=== PATIENT | female | born 1975 | race Hispanic/Latino ===

== ENCOUNTER 2023-03-07 13:33 | Emergency (ER) | payer BC, SELFPAY ==
--- OUTSIDE RECORDS SUMMARY | 2023-03-07 13:36 | XMS REPORT | Continuity of Care Document ---
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 Medications Ordered Filled Start Stop Current Ordering Indication Dosage Frequency Signature Comments Components Source Medication Medication Date Date Medication? Clinician (SIG) Name Name Duexis Duexis 2018- 2019- No Domingo 1 tablet Co mmon 04-12 08-29 [facility] 00:00: 00:00 - [facility] 00 :00 [facility] Trintellix Trintellix 2018- Yes Domingo 1 tablet Common 4-24 [facility] 00:00: - [facility] 00 [facility] Womens One Womens One Yes Domingo as C ommon Daily Daily Zheng directed Spirit - [facility] Immunizations Ordered Immunization Filled Immunization Date Status Commen ts Source Name Name TDAP > 7 TDAP > 7 2018-12-21 Completed Common Spirit Years-Adacel Years-Adacel 00:00:00 - [facility] Procedures This patient has no known procedures. Encounters Start End Encounter Admission Attending Care Care Encounter Source Date/Time Date/Time Type Type Clinicians Facility Department ID 2020-03-27 2020-03-27 [id number] Common 09:46:00 09:46:[address] [facility] 2019-04-12 2019-04-12 [facility] [id number] Common 16:30:00 16:30:[address] [place] [facility] 2019-03-28 2019-03-28 [facility] [id number] Common 13:12:00 13:12:[address] [facility] 2019-01-05 2019-01-05 [facility] [id number] Common 15:23:00 15:23:[address] [facility] 2018-12-30 2018-12-30 [facility] [id number] Common 10:34:00 10:34:[address] [facility] 2018-12-21 2018-12-21 [facility] [id number] Common 13:30:00 13:30:[address] [facility] Results This patient has no known results.
--- NOTE | 2023-03-07 14:47 | RAD REPORT ---
EXAM DESCRIPTION: CT - Head C Spine Mpr Wo Con - 03/07/2023 2:25 pm CLINICAL HISTORY: Head and neck injury status post fall. Head and neck pain COMPARISON: None. TECHNIQUE: Computed axial tomography of the head and cervical spine was obtained. Sagittal and coronal reconstruction was performed. All CT scans are performed using dose optimization technique as appropriate and may include automated exposure control or mA/KV adjustment according to patient size. FINDINGS: An intracranial bleed is not seen. The ventricles are normal in caliber. No significant hypodensity within the brain. An extra-axial fluid collection is not noted. Fluid within the visualized sinuses and mastoids is not seen A cervical fracture is not visualized. No dislocation is noted. IMPRESSION: No acute intracranial abnormality is seen. A cervical fracture is not visualized. If the patient continues to have symptoms to suggest intracranial /spinal cord pathology then MRI wou ld be recommended
--- NOTE | 2023-03-07 16:08 | ER ---
Nurse's Notes [facility] Name: Corie Valdes Age: 47 yrs Sex: Female : 1975 Arrival Date: 03/07/2023 Time: 13:33 Bed 11 Private MD: Diagnosis: Fall on same level, unspecified;Unspecified injury of head, initial encounter;Strain of muscle, fascia and tendon at neck level, initial encounter Presentation: 03/07 14:10 Chief complaint: Patient states: she caught the spirit in [employer] and she fell back, no iw one was there to catch her so she hit her head on chair , now has pain to neck and back of head. Coronavirus screen: At this time, the client does not indicate any symptoms associated with coronavirus-19. Ebola Screen: Patient negative for fever greater than or equal to 101.5 degrees Fahrenheit, and additional compatible Ebola Virus Disease symptoms Patient denies exposure to infectious person. Patient denies travel to an Ebola-affected area in the 21 days before illness onset. No symptoms or risks identified at this time. Initial Sepsis Screen: Does the patient meet any 2 criteria? No. Patient's initial sepsis screen is negative. Does the patient have a suspected source of infection? No. Patient's initial sepsis screen is negative. Risk Assessment: Do you want to hurt yourself or someone else? Patient reports no desire to harm self or others. Onset of symptoms was March 07, 2023. 14:10 Method Of Arrival: Ambulatory iw 14:10 Acuity: FERN 3 iw Triage Assessment: 16:52 Headache History: Denies prior headaches. General: Appears in no apparent distress. os comfortable, Behavior is calm, cooperative, appropriate for age. Pain: Denies pain. Complains of pain in scalp Pain currently is 4 out of 10 on a pain scale. Pain began 1 hour ago. Also complains of no other associated symptoms. Neuro: No deficits noted. Cardiovascular: No deficits noted. Respiratory: No deficits noted. Historical: - Allergies: 14:12 No Known Allergies; iw - PMHx: 14:12 None; iw Screenin:52 [facility] ED Fall Risk Assessment (Adult) History of falling in the last 3 months, os including since admission No falls in past 3 months (0 pts) Confusion or Disorientation No (0 pts) Intoxicated or Sedated No (0 pts) Impaired Gait No (0 pts) Mobility Assist Device Used No (0 pt) Altered Elimination No (0 pt) Score/Fall Risk Level 0 - 2 = Low Risk. Abuse screen: Denies threats or abuse. Nutritional screening: No deficits noted. Tuberculosis screening: No symptoms or risk factors identified. Vital Signs: 14:50 BP 131 / 71; Pulse 69; Resp 18; Temp 97.1; Pulse Ox 99% on R/A; mm9 [place] Coma Score: 16:04 Eye Response: spontaneous(4). Motor Response: obeys commands(6). Verbal Response: yuriy oriented(5). Total: 15. NIH Stroke Scale Scores: 16:01 NIHSS Score: 0 yuriy ED Course: 13:34 Patient arrived in ED. am2 14:12 Triage completed. iw 14:27 CT Head C Spine In Process Unspecified. EDMS 14:42 Dakotah Robledo MD is Attending Physician. yuriy 16:36 Kate Gutiérrez, RN is Primary Nurse. os 16:53 Arm band placed on right wrist. os 16:53 No provider procedures requiring assistance completed. Patient did not have IV access os during this emergency room visit. 17:25 Tika Diamond, RN is Primary Nurse. iw Administered Medications: 16:47 Drug: Acetaminophen PO 1000 mg Route: PO; os 17:00 Follow up: Response: No adverse reaction iw Outcome: 16:07 Discharge ordered by . yuriy 16:53 Condition: good os 17:25 Patient left the ED. iw NIH Stroke Scale - NIH Stroke Score Date: 03/07/2023 Time: 16:01 Total Score = 0 10. Dysarthria (speech clarity - read or repeat words) - 0(Normal) 11. Extinction and Inattention (visual/tactile/auditory/spatial/personal) - 0(No abnormality) 1a. Level of Consciousness (LOC) - 0(Alert) 1b. Level of Consciousness (LOC) (Month \T\ Age) - 0(Both) 1c. LOC Commands (Open \T\ Closes Eyes/Security Developer) - 0(Both) 2. Best Gaze (Lateral Gaze Paresis) - 0(Normal) 3. Visual Field Loss - 0(No visual loss) 4. Facial Palsy - 0(Normal) 5a. Left Arm: Motor (10-second hold) - 0(No drift) 5b. Right Arm: Motor (10-second hold) - 0(No drift) 6a. Left Leg: Motor (5-second hold - always test supine) - 0(No drift) 6b. Right Leg: Motor (5-second hold - always test supine) - 0(No drift) 7. Limb Ataxia (finger/nose \T\ heel/corral - test with eyes open) - 0(Absent) 8. Sensory Loss (pinprick arms/legs/face) - 0(Normal) 9. Best Language: Aphasia (description/naming/reading) - 0(No aphasia) Initials: yuriy Signatures: Dispatcher [employer] Dakotah De La Garza MD MD cha Williams, Irene, Janice Nunez RN am2 Sierra Wallis mm9 Kate Gutiérrez RN RN os
--- NOTE | 2023-03-07 16:08 | EDPHYS ---
Physician Documentation [facility] Name: Corie Valdes Age: 47 yrs Sex: Female : 1975 Arrival Date: 03/07/2023 Time: 13:33 Bed 11 Private MD: ED Physician Dakotah Robledo HPI: 03/07 16:01 This 47 yrs old Female presents to ER via Ambulatory with complaints of yuriy Headache, Head Injury-Adult, Fall Injury. 16:01 The patient complains of pain to the left occipital area, left base of the skull, right yuriy occipital area and right base of the skull. The patient describes the headache as constant. Onset: The symptoms/episode began/occurred just prior to arrival. Associated signs and symptoms: The patient has no apparent associated signs or symptoms. Associated signs and symptoms: Pertinent positives: This patient does not have any pertinent positive signs or symptoms associated with a headache. Severity of symptoms: At its worst the pain was mild, moderate, in the emergency department the pain is unchanged. Headache History: Denies prior headaches. The symptoms are alleviated by nothing. the symptoms are aggravated by movement. The patient has not experienced similar symptoms in the past. Historical: - Allergies: 14:12 No Known Allergies; iw - PMHx: 14:12 None; iw ROS: 16:01 Constitutional: Negative for fever, chills, and weight loss, Eyes: Negative for injury, yuriy pain, redness, and discharge, ENT: Negative for injury, pain, and discharge, Cardiovascular: Negative for chest pain, palpitations, and edema, Respiratory: Negative for shortness of breath, cough, wheezing, and pleuritic chest pain, Abdomen/GI: Negative for abdominal pain, nausea, vomiting, diarrhea, and constipation, Back: Negative for injury and pain, : Negative for injury, bleeding, discharge, and swelling, MS/Extremity: Negative for injury and deformity, Skin: Negative for injury, rash, and discoloration, Psych: Negative for depression, anxiety, suicide ideation, homicidal ideation, and hallucinations, Allergy/Immunology: Negative for hives, rash, and allergies, Endocrine: Negative for neck swelling, polydipsia, polyuria, polyphagia, and marked weight changes, Hematologic/Lymphatic: Negative for swollen nodes, abnormal bleeding, and unusual bruising. 16:01 Neck: Positive for pain at rest. 16:01 Neuro: Positive for headache, of the scalp. Exam: 16:01 Constitutional: This is a well developed, well nourished patient who is awake, alert, yuriy and in no acute distress. Head/Face: Normocephalic, atraumatic. Eyes: Pupils equal round and reactive to light, extra-ocular motions intact. Lids and lashes normal. Conjunctiva and sclera are non-icteric and not injected. Cornea within normal limits. Periorbital areas with no swelling, redness, or edema. ENT: Nares patent. No nasal discharge, no septal abnormalities noted. Tympanic membranes are normal and external auditory canals are clear. Oropharynx with no redness, swelling, or masses, exudates, or evidence of obstruction, uvula midline. Mucous membranes moist. Neck: Trachea midline, no thyromegaly or masses palpated, and no cervical lymphadenopathy. Supple, full range of motion without nuchal rigidity, or vertebral point tenderness. No Meningismus. Chest/axilla: Normal chest wall appearance and motion. Nontender with no deformity. No lesions are appreciated. Cardiovascular: Regular rate and rhythm with a normal S1 and S2. No gallops, murmurs, or rubs. Normal PMI, no JVD. No pulse deficits. Respiratory: Lungs have equal breath sounds bilaterally, clear to auscultation and percussion. No rales, rhonchi or wheezes noted. No increased work of breathing, no retractions or nasal flaring. Abdomen/GI: Soft, non-tender, with normal bowel sounds. No distension or tympany. No guarding or rebound. No evidence of tenderness throughout. Back: No spinal tenderness. No costovertebral tenderness. Full range of motion. Skin: Warm, dry with normal turgor. Normal color with no rashes, no lesions, and no evidence of cellulitis. MS/ Extremity: Pulses equal, no cyanosis. Neurovascular intact. Full, normal range of motion. Psych: Awake, alert, with orientation to person, place and time. Behavior, mood, and affect are within normal limits. 16:01 Neuro: Orientation: is normal, appropriate for stated age, no acute changes, Mentation: is normal, appropriate for stated age, no acute changes, Memory: is normal, appropriate for stated age, no acute changes, Cranial nerves: grossly normal, is grossly normal based on the patient's age, no acute changes, Cerebellar function: is grossly normal, Motor: moves all fours, strength is normal, Sensation: no obvious gross deficits, appropriate no acute changes, Gait: is steady, appropriate for age, Deep tendon reflexes are 2+ (normal) in the bilateral brachioradialis, bicep, tricep and patellar and Achilles tendons, Babinski testing is normal, seizure activity, is not displayed by the patient. Vital Signs: 14:50 BP 131 / 71; Pulse 69; Resp 18; Temp 97.1; Pulse Ox 99% on R/A; mm9 NIH Stroke Scale Scores: 16:01 NIHSS Score: 0 yuriy [place] Coma Score: 16:04 Eye Response: spontaneous(4). Motor Response: obeys commands(6). Verbal Response: yuriy oriented(5). Total: 15. MDM: 14:42 Patient medically screened. yuriy 16:04 Data reviewed: vital signs, nurses notes, radiologic studies, CT scan. Consideration of yuriy Admission/Observation Escalation of care including admission/observation considered. I considered the following discharge prescriptions or medication management in the emergency department Medications were administered in the Emergency Department. See MAR. Test considered but Not performed: Labs: no labs. Care significantly affected by the following chronic conditions: none. 16:05 Differential diagnosis: C-Spine Fracture Cervical Disc Herniation Cervical Raiculopathy yuriy migraine, subarachnoid bleed, subdural hematoma, tension headache, traumatic injuries, cervical strain, Degenerative Disc Disease Flexion Teardrop Fracture fracture, Neck Contusion Simple Wedge Fracture Vertical Compression Injury. Independent interpretation of the following test(s) in the Emergency Department CT Scan: My interpretation is ct head, c spine. Historians other than the Patient: Family Member: spose. 03/07 14:10 Order name: CT Head C Spine; Complete Time: 15:58 iw 03/07 14:42 Order name: Ice pack; Complete Time: 16:54 yuriy Administered Medications: 16:47 Drug: Acetaminophen PO 1000 mg Route: PO; os 17:00 Follow up: Response: No adverse reaction iw Disposition Summary: 03/07/23 16:07 Discharge Ordered Location: Home yuriy Problem: new yuriy Symptoms: have improved yuriy Condition: Stable yuriy Diagnosis - Fall on same level, unspecified yuriy - Unspecified injury of head, initial encounter yuriy - Strain of muscle, fascia and tendon at neck level, initial encounter yuriy Followup: yuriy - With: Private Physician - When: 2 - 3 days - Reason: Recheck today's complaints, Continuance of care, Re-evaluation by your physician Discharge Instructions: - Discharge Summary Sheet yuriy - Head Injury, Adult yuriy - Muscle Strain yuriy - Neck Contusion yuriy - Muscle Strain, [id number] yuriy - Head Injury, Adult, [id number] yuriy - Neck Contusion, [id number] [facility] Forms: - Medication Reconciliation Form [facility] - Thank You Letter [facility] - Antibiotic Education [facility] - Prescription Opioid Use [facility] Prescriptions: - Tylenol 325 mg Oral Tablet - take 2 tablets by ORAL route every 6 hours as needed; 100 tablet; Refills: 0, [facility] Product Selection Permitted - Zofran 4 mg Oral Tablet - take 1 tablet by ORAL route every 12 hours As needed; 20 tablet; Refills: 0, [facility] Product Selection Permitted NIH Stroke Scale - NIH Stroke Score Date: 03/07/2023 Time: 16:01 Total Score = 0 10. Dysarthria (speech clarity - read or repeat words) - 0(Normal) 11. Extinction and Inattention (visual/tactile/auditory/spatial/personal) - 0(No abnormality) 1a. Level of Consciousness (LOC) - 0(Alert) 1b. Level of Consciousness (LOC) (Month \T\ Age) - 0(Both) 1c. LOC Commands (Open \T\ Closes Eyes/Php Web Developer) - 0(Both) 2. Best Gaze (Lateral Gaze Paresis) - 0(Normal) 3. Visual Field Loss - 0(No visual loss) 4. Facial Palsy - 0(Normal) 5a. Left Arm: Motor (10-second hold) - 0(No drift) 5b. Right Arm: Motor (10-second hold) - 0(No drift) 6a. Left Leg: Motor (5-second hold - always test supine) - 0(No drift) 6b. Right Leg: Motor (5-second hold - always test supine) - 0(No drift) 7. Limb Ataxia (finger/nose \T\ heel/corral - test with eyes open) - 0(Absent) 8. Sensory Loss (pinprick arms/legs/face) - 0(Normal) 9. Best Language: Aphasia (description/naming/reading) - 0(No aphasia) Initials: [facility] Signatures: Dispatcher [employer] EDMS Dakotah Robledo MD MD cha Williams, Irene, RN RN iw Kate Gutiérrez, RN RN os
[2023-03-07] MEDS ORDERED: ACETAMINOPHEN 500 MG TAB ONE (16:45)
[2023-03-07 17:33] VITALS: BP 131/71; TEMP 97.1; O2SAT 99
== END 2023-03-07 17:25 | disposition home or self-care (01) ==
LOC: ER 13:33
DX: S09.90XA Unspecified injury of head, initial encounter (principal); S16.1XXA Strain of muscle, fascia and tendon at neck level, initial encounter; W18.30XA Fall on same level, unspecified, initial encounter
CPT/HCPCS: 70450; 72125; 99283